=== PATIENT | female | born 1970 | race Two or more races ===

== ENCOUNTER → 2016-09-09 | Outpatient (CLI) | payer MEDICAID ==
[~2016-09-09] MED LIST: ACET-1600 PO; HYDR-3138 PO; MUPI22OI TP; NONE PER PT; ONDA4TAB7 PO; PROC25SU25 PO; PROM12.55 PO; TAMO10TA PO
== END | disposition home or self-care (01) ==
LOC: ROC 15:30
PROVIDERS: ATTEND Radiology Radiation Oncology
DX: C50.311 Malignant neoplasm of lower-inner quadrant of right female breast (principal); N63 Unspecified lump in breast; Z90.12 Acquired absence of left breast and nipple
CPT/HCPCS: 99213; G0463

== ENCOUNTER → 2016-09-21 | Outpatient (CLI) | payer MEDICAID | END | disposition home or self-care (01) | LOC: CFH 12:06 | PROVIDERS: ATTEND Radiology Radiation Oncology | DX: N63 Unspecified lump in breast (principal) | CPT/HCPCS: 76641; G0206 ==

== ENCOUNTER → 2017-11-01 | Outpatient (CLI) | payer MEDICAID ==
[~2017-11-01] MED LIST changes: -HYDR-3138 PO; +HYDR-3237 PO
== END | disposition home or self-care (01) ==
LOC: CFH 14:29
PROVIDERS: ATTEND Surgery
DX: D24.1 Benign neoplasm of right breast (principal); Z85.3 Personal history of malignant neoplasm of breast; Z90.12 Acquired absence of left breast and nipple; Z92.3 Personal history of irradiation
CPT/HCPCS: 77065